=== PATIENT | female | born 1995 | race Caucasian/White ===

== ENCOUNTER 2017-04-08 15:26 | Emergency (ER) | payer OTHER ==
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
[2017-04-08] MEDS ORDERED: NORCO 7.5/325 PO ONE (16:46)
[2017-04-08] MEDS ORDERED: TRIPLE ANTIBIOTIC TP ONE (16:46)
[2017-04-08] MEDS ORDERED: FLEXERIL PO ONE (16:46)
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
[2017-04-08 20:03] VITALS: BP 112/68
== END 2017-04-08 20:12 | disposition home or self-care (01) ==
LOC: ED 15:26
DX: S00.83XA Contusion of other part of head, initial encounter (principal); S09.90XA Unspecified injury of head, initial encounter; S80.812A Abrasion, left lower leg, initial encounter; G44.319 Acute post-traumatic headache, not intractable; V49.49XA Driver injured in collision with other motor vehicles in traffic accident, initial encounter; Y93.89 Activity, other specified; Y92.89 Other specified places as the place of occurrence of the external cause; Y99.8 Other external cause status
CPT/HCPCS: 70450; 81025; A6250

== ENCOUNTER 2020-11-02 11:04 | Outpatient (CLI) | payer MEDICAID ==
[2020-11-02] MEDS ORDERED: LACTATED RINGERS 1,000 ML ONE (11:46)
[2020-11-02 11:55] VITALS: BP 121/68
[2020-11-02] MEDS ORDERED: LACTATED RINGERS 1,000 ML IV ONE (12:00)
[2020-11-02 14:32] LABS: Bilirubin,Urine NEG (Negative); Blood,Urine NEG (Negative); Color,Urine Yellow (Yellow); Protein,Urine <15 mg/dL mg/dL (Negative); Urobilinogen,Urine < 2.0 mg/dL (<2.0)
--- NOTE | 2020-11-02 16:11 | Ultrasound Report ---
LIMITED OBSTETRICAL ULTRASOUND WITH BIOPHYSICAL PROFILE HISTORY: Evaluate well-being. FINDINGS: A single viable intrauterine in the cephalic position has heart tones of 146 bpm. Amn iotic fluid index is at the lower range of normal measuring 7.5 cm. Biophysical profile is normal at 8/8. IMPRESSION: 1. Amniotic fluid index lower limits of normal. 2. Normal biophysical profile. Signer Name: Girish Ferreira MD Signed: 11/02/2020 4:07 PM Workstation Name: [id number]
== END 2020-11-02 15:53 | disposition home or self-care (01) ==
LOC: TRG 11:04 → APU 11:06 → TRG 15:53
PROVIDERS: ATTEND Obstetrics & Gynecology
DX: O47.1 False labor at or after 37 completed weeks of gestation (principal); O48.0 Post-term pregnancy; Z3A.40 40 weeks gestation of pregnancy
CPT/HCPCS: 59025; 76815; 76819; 81001; 96360; J7120

== ENCOUNTER 2020-11-04 16:51 | Outpatient (CLI) | payer MEDICAID ==
[2020-11-04 17:48] VITALS: BP 125/60
--- NOTE | 2020-11-04 18:25 | Ultrasound Report ---
Limited OB ultrasound INDICATION: well-being FINDINGS: Single live intrauterine in cephalic position. ROSALIND measures 10.5 cm. heart rate is 152 bpm. 40 weeks 2 days. IMPRESSION: Single live intrauterine . ROSALIND 10.5 cm OB ultrasound-biophysical profile INDICATION: well-being IMPRESSION: Biophysical profile measures 8 out of 8 with heart rate of 152 bpm. Signer Name: Lucas Sheldon MD Signed: 11/04/2020 6:21 PM Workstation Name: [id number]
== END 2020-11-04 18:44 | disposition home or self-care (01) ==
LOC: TRG 16:51 → APU 16:52 → TRG 18:44
DX: Z34.93 Encounter for supervision of normal pregnancy, unspecified, third trimester (principal); Z3A.40 40 weeks gestation of pregnancy
CPT/HCPCS: 59025; 76815; 76819

== ENCOUNTER → 2020-11-07 | Outpatient (CLI) | payer MEDICAID ==
[~2020-11-07] MED LIST: LACTATED RINGERS 1,000 ML ONE
--- NOTE | 2020-11-07 23:47 | Ultrasound Report ---
ULTRASOUND BIOPHYSICAL PROFILE INDICATION / CLINICAL INFORMATION: ROSALIND. BPP COMPARISON: 11/04/2020. FINDINGS: BREATHING MOVEMENT = 2 GROSS BODY MOVEMENT = 2 TONE = 2 QUALITATIVE AMNIOTIC FLUID VOLUME = 2 TOTAL BIOPHYSICAL SCORE = 8/8 AMNIOTIC FLUID INDEX (cm) = 13 PRESENTATION: Cephalic. HEART RATE (beats per minute): 141-158 IMPRESSION: 1. biophysical profile = 12/07 2. ROSALIND measures 13 cm, within normal limits. 3. No significant abnormality. Signer Name: Giovanny Rice MD Signed: 11/07/2020 11:43 PM Workstation Name: [id number]
[2020-11-08 01:52] VITALS: BP 122/81
== END | disposition home or self-care (01) ==
LOC: UNDOADMIN 20:56 → LD 20:56 → TRG 22:13 → UNDODISIN 11-08 02:20 → EDSTATUS 12-02 12:33
PROVIDERS: ATTEND Obstetrics & Gynecology
DX: Z34.93 Encounter for supervision of normal pregnancy, unspecified, third trimester (principal); Z3A.40 40 weeks gestation of pregnancy
CPT/HCPCS: 76815; 76819; G0378

== ENCOUNTER 2020-11-09 04:39 | Inpatient (IN) | payer MEDICAID ==
[2020-11-09] MEDS ORDERED: LIDOCAINE (2%) 20 MG/1 ML VIAL 20 ML MDV INFILTRATI ONE (06:04)
[2020-11-09] MEDS ORDERED: fentaNYL 100 MCG/2 ML INJ IV PRN (06:04)
[2020-11-09] MEDS ORDERED: NalbUPHINE 10 MG/1 ML INJ IV PRN (06:04)
[2020-11-09] MEDS ORDERED: METHYLERGONOVINE MALEATE 0.2 MG/ML VIAL IM PRN (06:04)
[2020-11-09] MEDS ORDERED: PROMETHAZINE 25 MG TAB PO PRN (06:04)
[2020-11-09] MEDS ORDERED: ACETAMINOPHEN 325 MG TAB PO PRN (06:04)
[2020-11-09] MEDS ORDERED: ONDANSETRON 4 MG/2 ML INJ IV PRN (06:04)
[2020-11-09] MEDS ORDERED: TERBUTALINE 1 MG/1 ML INJ SUB-Q PRN (06:04)
[2020-11-09] MEDS ORDERED: OXYTOCIN 10 UNIT/1 ML INJ IM PRN (06:04)
[2020-11-09] MEDS ORDERED: CARBOPROST TROMETHAMINE 250 MCG/1 ML INJ IM PRN (06:04)
[2020-11-09] MEDS ORDERED: MINERAL OIL 30 ML ORAL LIQD PO PRN (06:04)
[2020-11-09] MEDS ORDERED: ePHEDrine SULFATE 50 MG/1 ML INJ IV PRN ×2 (06:04→08:00)
[2020-11-09] MEDS ORDERED: miSOPROStol 200 MCG TAB PR PRN (06:04)
[2020-11-09] MEDS ORDERED: LOPERAMIDE 2 MG CAP PO PRN (06:04)
[2020-11-09] MEDS ORDERED: LACTATED RINGERS 1,000 ML IV SCH (06:15)
--- NOTE | 2020-11-09 06:20 | History and Physical Report ---
History of Present Illness Date of examination: 11/09/20 Date of admission: 11/09/20 Chief complaint: painful contractions History of present illness: at 41.0wks by LMP c/w U/S/. care at [facility]. Pt seen 2 days ago in latent labor and sent home and has scheduled induction tomorrow, however pt states her contractions were painful hence she returned. Pt also c/o Headache. Admits to movement. Denies LOF or vag bleeding or dysuria. Pt speaks belarusian only and has family member to bedside. Pt desires IV pain med Past History Past Medical History: no pertinent history Past Surgical History: no surgical history - Obstetrical History : 2 Medications and Allergies Allergies Allergy/AdvReac Type Severity Reaction Status Date / Time No Known Allergies Allergy Verified 04/08/17 15:30 Home Medications Medication Instructions Recorded Confirmed Last Taken Type Ferrous Sulfate [Feosol 325 MG tab] 325 mg PO BID 30 Days #60 tablet 03/18/18 11/02/20 10/31/20 Rx Active Meds: Active Medications Acetaminophen (Acetaminophen 325 Mg Tab) 650 mg PO Q4H PRN PRN Reason: Pain, Mild (1-3) Carboprost Tromethamine (Carboprost Tromethamine 250 Mcg/1 Ml Inj) 250 mcg IM ONCE PRN PRN Reason: Uterine Bleeding Ephedrine Sulfate (Ephedrine Sulfate 50 Mg/1 Ml Inj) 10 mg IV Q2M PRN PRN Reason: Hypotension Fentanyl (Fentanyl 100 Mcg/2 Ml Inj) 100 mcg IV Q2H PRN PRN Reason: Pain,Severe (7-10) LABOR PAIN Lactated Ringer's (Lactated Ringers) 1,000 mls @ 125 mls/hr IV DIRECT YANETH Lactated Ringer's (Lactated Ringers) 1,000 mls @ 125 mls/hr IV DIRECT YANETH Oxytocin/Sodium Chloride (Pitocin/Ns 30 Unit/500ml) 30 units in 500 mls @ 40 mls/hr IV TITR YANETH; Protocol Lidocaine (Lidocaine (2%) 20 Mg/1 Ml Vial 20 Ml Mdv) 20 ml INFILTRATI ONCE ONE Stop: 11/09/20 06:05 Loperamide HCl (Loperamide 2 Mg Cap) 2 mg PO ONCE PRN PRN Reason: give with Hemabate Methylergonovine Maleate (Methylergonovine Maleate 0.2 Mg/Ml Vial) 0.2 mg IM ONCE PRN PRN Reason: Uterine Bleeding Mineral Oil (Mineral Oil 30 Ml Oral Liqd) 30 ml PO QHS PRN PRN Reason: Constipation Misoprostol (Misoprostol 200 Mcg Tab) [address] ONCE PRN PRN Reason: Uterine Bleeding Nalbuphine HCl (Nalbuphine 10 Mg/1 Ml Inj) 10 mg IV Q2H PRN PRN Reason: Pain, Moderate (4-6) Ondansetron HCl (Ondansetron 4 Mg/2 Ml Inj) 4 mg IV Q8H PRN PRN Reason: Nausea And Vomiting Oxytocin (Oxytocin 10 Unit/1 Ml Inj) 10 unit IM ONCE PRN PRN Reason: Uterine Bleeding Promethazine HCl (Promethazine 25 Mg Tab) 25 mg PO Q6H PRN PRN Reason: Nausea And Vomiting Terbutaline Sulfate (Terbutaline 1 Mg/1 Ml Inj) 0.25 mg SUB-Q ONCE PRN PRN Reason: Hyperstimulation/Hypertonicity Review of Systems All systems: negative (contractions that are painful) - Vital Signs Vital signs: Vital Signs Temp Pulse Resp BP 98.7 F 82 16 132/82 11/09/20 05:23 11/09/20 05:23 11/09/20 05:23 11/09/20 05:23 Temp Pulse Resp BP Pulse Ox 98.7 F 90 16 129/80 11/09/20 05:23 11/09/20 05:34 11/09/20 05:23 11/09/20 05:34 - Physical Exam Breasts: Positive: deferred Cardiovascular: Regular rate Lungs: Positive: Normal air movement Abdomen: Positive: normal appearance Genitourinary (Female): Positive: normal external genitalia Vulva: both: normal Uterus: Positive: enlarged (non-tender gravid) - Obstetrical FHR: category 1 Uterine Contraction Monitor Mode: External Cervical Dilatation: 3.5 (per triage nurse) Cervical Effacement Percentage: 40 station: -3 Uterine Contraction Pattern: Regular Results All other labs normal. Assessment and Plan Term in latent labor, GBS negative with headache and painful contractions 1. Admit to labor and delivery 2. IV hydrate and give pain meds, and augment with pitocin if ctx become irregular 3. Expect
[2020-11-09] MEDS: LACTATED RINGERS 1,000 ML IV SCH ×3 (06:53→10:00)
[2020-11-09] MEDS ORDERED: OXYTOCIN DRIP 30 UNITS/500 ML BAG IV SCH (07:00)
[2020-11-09 07:19] LABS: Hemoglobin 13.6 gm/dl (10.1-14.3); Mean Corpuscular HGB Conc 34 % (30-34); Mean Corpuscular Volume 91 fl (79-97); Platelet Count 257 K/mm3 (140-440); Red Blood Count 4.42 M/mm3 (3.65-5.03); Red Cell Distribution Width 14.5 % (13.2-15.2)
--- NOTE | 2020-11-09 07:35 | Anesthesia Consultation ---
Anesthesia Consult and Med Hx Date of service: 11/09/20 - Airway Anesthetic Teeth Evaluation: Good ROM Head & Neck: Adequate Mental/Hyoid Distance: Adequate Mallampati Class: Class II Intubation Access Assessment: Probably Good - Pulmonary Exam CTA: Yes - Cardiac Exam Cardiac Exam: RRR - Pre-Operative Health Status ASA Pre-Surgery Classification: ASA2 Proposed Anesthetic Plan: Epidural - Pulmonary Hx Asthma: No COPD: No Hx Pneumonia: No - Cardiovascular System Hx Hypertension: No - Central Nervous System Hx Seizures: No Hx Psychiatric Problems: No - Endocrine Hx Renal Disease: No Hx End Stage Renal Disease: No Hx Hypothyroidism: No Hx Hyperthyroidism: No - Hematic Hx Anemia: No Hx Sickle Cell Disease: No - Other Systems Hx Alcohol Use: No
[2020-11-09 07:40] LABS: Alanine Aminotransferase 34 units/L (7-56); Albumin 3.8 g/dL (3.9-5); Blood Urea Nitrogen 11 mg/dL (7-17); Calcium 9.8 mg/dL (8.4-10.2); Hemolysis Index 3; Uric Acid 4.4 mg/dL (3.5-7.6)
[2020-11-09 07:41] LABS: BUN/Creatinine Ratio 28
[2020-11-09] MEDS ORDERED: fentaNYL-BUPIV 2 MCG/ML-0.125% 200 MCG/100 ML BAG EPIDURAL SCH (08:00)
[2020-11-09] MEDS ORDERED: NALOXONE 2 MG/2 ML INJ IV PRN (08:00)
--- NOTE | 2020-11-09 08:04 | Progress Note ---
Labor Epidural - Labor Epidural Start Time: 07:53 Stop Time: 07:58 Performed by:: JASMINE JENSEN Procedure: Patient is requesting epidural for labor pain. H&P, and labs reviewed. Procedure explained, questions answered, consent obtained. Patient in sitting position with blood pressure cuff and pulse ox on and working. Timeout performed immediately before start of procedure. Sterile chlorahexadine 0.5% prep/drape. 3 mL 1% lidocaine skin wheal at L[3]-L[4]. 18-gauge The Invisible Armortead epidural needle advanced to [id number] with saline at [7] cm. Epidural catheter advanced to [12] cm, negative aspiration for blood and csf, negative test dose 3 ml 1.5% lidocaine with epinephrine. Epidural dexmedetomidine [30] mcg administered. Sterile steri-strips and tegaderm applied, followed by tape reinforcement. Patient tolerated procedure well. Rommel GARCIA
--- NOTE | 2020-11-09 08:18 | Event Note ---
Date: 11/09/20 Assumed care of patient. Patient has received epidural and is comfortable. SVE /-3/BBOW.
--- NOTE | 2020-11-09 08:57 | Event Note ---
Date: 11/09/20 SVE /-2.
--- NOTE | 2020-11-09 09:54 | Event Note ---
Date: 11/09/20 SVE /-1. FSE applied to better trace FHR. Meconium stained amniotic fluid noted. Patient positioned in left lateral position with leg in stirrup.
[2020-11-09] MEDS ORDERED: SODIUM CHLORIDE 0.9% 1000 ML 1,000 ML VG SCH (10:00)
--- NOTE | 2020-11-09 13:32 | Procedure Note ---
OB Delivery Note - Delivery Date of Delivery: 11/09/20 Surgeon: RIGOBERTO REESE Estimated blood loss: 300cc - Vaginal Delivery presentation: vertex Delivery position: OA Intrapartum events: meconium Delivery induction: none Delivery augmentation: rupture of membranes Delivery monitor: external FHT, external uterine, internal FHT Route of delivery: Delivery placenta: spontaneous Delivery cord: 3 umbilical vessels Episiotomy: none Delivery laceration: 1st degree Delivery repair: vicryl Anesthesia: epidural Delivery comments: Spontaneous vaginal delivery at 12:59 of liveborn female infant weighing 8 lb. 1 oz. over first degree perineal laceration with apgars of 8/9. Epidural anesthesia. Meconium stained amniotic fluid; NICU present at delivery. Baby bulb suctioned immediately after and dried with towel. Spontaneous cry and respirations; baby vigorous at . Baby placed skin to skin with mom after delivery. 3 vessel cord double clamped and cut and baby taken to radiant warmer for further suctioning. Spontaneous delivery of placenta and membranes by card mechanism. EBL 300 cc. Pitocin to IV fluids after delivery of placenta. Cytotec 800 micrograms given rectally for uterine atony. Fundus firm and midline after massage and cytotec. Small first degree perineal laceration repaired with 3-0 vicryl. No other lacerations noted. Vaginal sweep negative. Sponge count correct. Mother and baby stable. Placenta sent to path. Pelvic US to check for retained placenta due to irregularly shaped placenta.
[2020-11-09] MEDS ORDERED: MAGNESIUM HYDROXIDE (MOM) ORAL LIQD UDC PO PRN (14:30)
[2020-11-09] MEDS ORDERED: LANOLIN/ZINC/DIMETHICONE (LANSINOH) 7 GM TP PRN (14:30)
[2020-11-09] MEDS ORDERED: HYDROcodone/ACETAMINOPHEN 5-325 MG TAB PO PRN (14:30)
[2020-11-09] MEDS: IBUPROFEN 600 MG TAB PO SCH ×2 (14:35→23:03)
[2020-11-09] MEDS ORDERED: WITCH HAZEL/ GLYCERIN PAD TP PRN (15:00)
--- NOTE | 2020-11-09 15:02 | Ultrasound Report ---
Limited pelvic Ultrasound HISTORY: Check for retained placenta. TECHNIQUE: Grayscale and color imaging performed. COMPARISON: 11/07/2020 FINDINGS: Endometrial canal is primarily collapsed with no nodular area of tissue with internal blood flow. There is a small amount of fluid in debris which probably represents blood products. Ovaries w ere not visualized. IMPRESSION: No convincing retained products of conception. Signer Name: Augie Thorpe MD Signed: 11/09/2020 2:57 PM Workstation Name: [id number]
[2020-11-10 04:29] LABS: Hematocrit 37.4 % (30.3-42.9); Hemoglobin 12.5 gm/dl (10.1-14.3)
[2020-11-10] MEDS: IBUPROFEN 600 MG TAB PO SCH ×3 (05:18→23:45)
--- NOTE | 2020-11-10 08:58 | Progress Note ---
Assessment and Plan pp exam d/c in 1 day. Subjective - Subjective Date of service: 11/10/20 Principal diagnosis: term , labor Patient reports: appetite normal, voiding normally, pain well controlled, ambulating normally : doing well Objective - Vital Signs Latest vital signs: Vital Signs Temp Pulse Resp BP BP Pulse Ox 11/10/20 07:59 98.3 F 71 20 128/73 91 11/10/20 00:40 97.8 F 77 16 127/76 99 11/09/20 20:18 98.3 F 82 20 137/80 99 11/09/20 16:44 99.6 F 83 18 138/86 96 11/09/20 14:40 99.3 F 75 18 146/83 99 11/09/20 14:31 82 137/78 11/09/20 14:12 98.2 F 84 16 127/70 11/09/20 14:04 100 H 92 11/09/20 14:01 92 H 97 11/09/20 13:56 92 H 133/83 97 11/09/20 13:51 88 98 11/09/20 13:46 89 97 11/09/20 13:41 94 H 97 11/09/20 13:36 96 H 97 11/09/20 13:33 114 H 93 11/09/20 13:31 100 H 95 11/09/20 13:26 105 H 96 11/09/20 13:24 107 H 94 11/09/20 13:21 96 H 91 11/09/20 13:19 106 H 94 11/09/20 13:16 99 H 95 11/09/20 13:11 102 H 98 11/09/20 13:06 88 95 11/09/20 13:01 156 H 96 11/09/20 12:59 120 H 78 L 11/09/20 12:56 115 H 99 11/09/20 12:51 126 H 99 11/09/20 12:45 80 94 11/09/20 12:43 141 H 92 11/09/20 12:40 143 H 98 11/09/20 12:35 109 H 96 11/09/20 12:31 114 H 135/84 11/09/20 12:30 113 H 96 11/09/20 12:25 105 H 94 11/09/20 12:20 90 98 11/09/20 12:15 98 H 135/79 96 11/09/20 12:10 104 H 96 11/09/20 12:05 87 96 11/09/20 12:03 98 H 91 11/09/20 12:00 90 130/73 97 11/09/20 11:55 97 H 97 11/09/20 11:50 92 H 97 11/09/20 11:47 88 129/84 11/09/20 11:45 100 H 98 11/09/20 11:40 98 H 97 11/09/20 11:35 88 100 11/09/20 11:31 93 H 132/71 11/09/20 11:30 105 H 99 11/09/20 11:25 80 99 11/09/20 11:20 77 99 11/09/20 11:15 89 124/73 100 11/09/20 11:10 86 100 11/09/20 11:05 100 H 98 11/09/20 11:01 83 108/55 11/09/20 11:00 85 99 11/09/20 10:55 88 99 11/09/20 10:50 91 H 97 11/09/20 10:45 100 H 98 11/09/20 10:44 93 H 102/59 11/09/20 10:40 82 97 11/09/20 10:35 92 H 96 11/09/20 10:32 81 100/52 90 11/09/20 10:30 93 H 96 11/09/20 10:25 87 96 11/09/20 10:20 85 97 11/09/20 10:15 88 99/53 98 11/09/20 10:10 93 H 97 11/09/20 10:05 81 98 11/09/20 10:00 90 103/59 97 11/09/20 09:55 91 H 98 11/09/20 09:50 97 H 97 11/09/20 09:45 113 H 99/56 97 11/09/20 09:40 117 H 96 11/09/20 09:35 104 H 98 11/09/20 09:30 115 H 97 11/09/20 09:25 98 H 98 11/09/20 09:22 111 H 98/52 11/09/20 09:20 89 99 11/09/20 09:18 98 H 98/57 07/11/21 09:15 90 98 11/09/20 09:10 93 H 98 11/09/20 09:05 98 H 98 11/09/20 09:00 94 H 98 Intake and Output 11/09/20 11/10/20 11/10/20 23:59 07:59 15:59 Intake Total 560 360 Output Total 400 Balance 160 360 Intake: Oral 560 Intake, Free Water 360 Output: Urine 400 Void 400 Other: Total, Intake Amount 200 Total, Output Amount 400 # Voids Void 1 1 1 - Exam Abdomen: Present: normal appearance, soft Extremities: Present: normal Incision: Present: normal, dry, intact
--- NOTE | 2020-11-10 16:00 | Post Anesthesia Evaluation ---
- Post Anesthesia Evaluation Patient Participated: Yes Airway Patent: Yes Stable Respiratory Function: Yes Nausea/Vomiting: No Temp > 96.8F: Yes Pain Manageable: Yes Adequeate Hydration: Yes Anesthesia Complications: No Block Receding Appropriately: Yes
[2020-11-11] MEDS: IBUPROFEN 600 MG TAB PO SCH ×2 (06:30→12:20)
--- NOTE | 2020-11-11 09:15 | Discharge Summary ---
Providers - Providers Date of Admission: 11/09/20 13:55 Date of discharge: 11/11/20 Attending physician: COLE JACKSON Primary care physician: COLE JACKSON Hospitalization Reason for admission: active labor, IUP at term Delivery: Episiotomy: none Laceration: 1st degree Incision: normal, intact Other procedures: none complications: none Discharge diagnosis: IUP at term delivered [place] baby: female Hospital course: Pt was admitted in active labor and had a w/o pp complications. She was d/cd home in stable cond. See H&P, delivery summary, and H&P. Condition at discharge: Stable Disposition: DC-01 TO HOME OR SELFCARE Plan - Discharge Medications Prescriptions: Ibuprofen [Ibu-200] 600 mg PO Q6HR #30 tablet - Provider Discharge Summary Activity: routine, no sex for 6 weeks, no heavy lifting 4 weeks, no strenuous exercise Diet: routine Instructions: routine Additional instructions: [] Smoking cessation referral if applicable(refer to patient education folder for contact #) [] Refer to [facility]'s [facility] Booklet Call your doctor immediately for: * Fever > 100.5 * Heavy vaginal bleeding ( >1 pad per hour) * Severe persistent headache * Shortness of breath * Reddened, hot, painful area to leg or breast * Drainage or odor from incision. * Keep incision clean and dry at all times and follow doctor's instructions regarding bathing/showering - Follow up plan Follow up: COLE JACKSON MD [Primary Care Provider] - 6 Weeks Forms: [facility] Discharge Summary, Discharge Signature Page
[2020-11-11 13:13] VITALS: BP 121/80
== END 2020-11-11 14:10 | disposition home or self-care (01) | DRG 775 ==
LOC: TRG 04:39 → APU 04:40 → TRG 06:04 → LD 06:05 → OBSVTOIN 13:55 → OB 14:53
PROVIDERS: ADMIT Obstetrics & Gynecology; ATTEND Obstetrics & Gynecology
PROC: 10E0XZZ Delivery of Products of Conception, External Approach (ICD-10-PCS; principal; 2020-11-09)
PROC: 3E0R3BZ Introduction of Anesthetic Agent into Spinal Canal, Percutaneous Approach (ICD-10-PCS; 2020-11-09)
PROC: 00HU33Z Insertion of Infusion Device into Spinal Canal, Percutaneous Approach (ICD-10-PCS; 2020-11-09)
PROC: 0HQ9XZZ Repair Perineum Skin, External Approach (ICD-10-PCS; 2020-11-09)
DX: O77.0 Labor and delivery complicated by meconium in amniotic fluid (principal); Z3A.41 41 weeks gestation of pregnancy; Z37.0 Single live birth; Z20.822 Contact with and (suspected) exposure to COVID-19; O70.0 First degree perineal laceration during delivery
CPT/HCPCS: 36415; 76857; 80053; 83615; 84550; 85014; 85018; 85027; 86850; 86900; 86901; 88307; 96360; 96372; G0378; J2210; J2590; J3105; J7120; U0003